=== PATIENT | female | born 1975 | race Asian ===

== ENCOUNTER 2024-03-02 08:55 | Day surgery (SDC) | payer BC, SELFPAY ==
--- NOTE | 2024-03-01 19:53 | PM.EVENT ---
Event Note Date Patient Seen: 03/01/24 Time Patient Seen: 19:53 Event Note (Rapid Response, Code, or fall): Ok to go home in taxi
[2024-03-02 10:01] VITALS: BP 136/78; PULSE 78; RESP 16; TEMP 36.8; O2SAT 100
--- NOTE | 2024-03-02 10:05 | P.HP_ITS ---
History of Present Illness History of Present Illness Date Patient Seen: 03/02/24 Time Patient Seen: 10:05 Chief complaint: Screening Colonoscopy Narrative: Jerrod is 48-year-old woman here for colonoscopy. She has had 2 colonoscopies in the past with polyps removed. Her most recent colonoscopy was approximately 2020 in [facility]. No family history of colon cancer. PFSH Social History Smoking Status: Never smoker alcohol intake: current Meds Home Medications and Allergies Allergies Allergy/AdvReac Type Severity Reaction Status Date / Time No Known Drug Allergies Allergy Verified 03/02/24 09:54 Exam Vital Signs (past 8 hours): - 03/02/24 10:01 Temperature 98.3 F Pulse Rate 78 Respiratory Rate 16 Blood Pressure 136/78 Pulse Oximetry 100 Oxygen Delivery Method Room Air Oxygen Delivery Method Room Air Const General: healthy appearing Resp Effort & Inspection: normal respiratory effort Assessment & Plan Assessment and plan (1) Personal history of colonic polyps: Status: Acute Plan Colonoscopy Time-Based Coding :: [TOTAL MINUTES] spent with patient and on the chart (including review of chart, obtaining history, exam, reviewing outside data, placing orders, documenting exam and treatment plan, and counseling patient) on [DATE].
--- NOTE | 2024-03-02 11:12 | PM.OP.COLON ---
Operative Date/Time/Diagnoses Date of procedure: 03/02/24 Time of procedure: 11:12 Pre-op diagnosis: History of polyps Post-op diagnosis: same Procedure & Clinicians Study performed: Colonoscopy Same procedure as scheduled: Yes Surgeon: Syed Segovia Procedure Notes Procedure in detail: Surgeon: Syed Segovia MD Anesthesia: Vinita Posada CRNA Procedure: The patient was brought to the endoscopy suite, placed in left lateral decubitus position. The patient was connected to monitoring devices. A time-out was performed. Sedation was administered. Once the patient was adequately sedated, a digital rectal exam was performed and was normal. The scope was then inserted and advanced to the cecum where the appendiceal orifice was identified and photographed. The scope was then slowly withdrawn over greater than 6 minutes. The mucosa was thoroughly inspected. No abnormalities were found. The scope was retroflexed in the rectum. The scope was straightened and removed. The patient was awakened and brought to recovery. Scope withdrawal time: 7 minutes Sedation time: 17 minutes EBL: 0 Findings: Normal colon Post-procedure Recommendations: Colonoscopy in 10 years Disposition: PACU
[2024-03-02 11:13] VITALS: BP 102/53; PULSE 69; RESP 22; TEMP 37.1; O2SAT 99
[2024-03-02 11:18] VITALS: BP 100/60; PULSE 68; RESP 18; O2SAT 99
[2024-03-02 11:23] VITALS: BP 116/69; PULSE 80; RESP 14; TEMP 36.6; O2SAT 100
[2024-03-02 11:36] VITALS: BP 116/69; PULSE 82; RESP 16; TEMP 36.1; O2SAT 99
== END 2024-03-02 11:39 | disposition home or self-care (01) ==
PROVIDERS: PCP Physician Assistant; Referring Provider Surgery; Visit Provider Surgery
PROC: 0DJD8ZZ Inspection of Lower Intestinal Tract, Via Natural or Artificial Opening Endoscopic (ICD-10-PCS; CPT 45378; principal; 2024-03-02 10:15)
DX: Z12.11 Encounter for screening for malignant neoplasm of colon (principal); Z86.0100 Personal history of colon polyps, unspecified
CPT/HCPCS: 45378; J2405; J2704